=== PATIENT | male | born 1990 | race Caucasian/White ===

== ENCOUNTER 2024-12-28 14:17 | Emergency (ER) | payer MEDICAID ==
[~2024-12-28] VITALS: Ht 185.4 cm; Wt 76.2 kg
[2024-12-28 14:21] VITALS: BP 150/72; PULSE 82; RESP 16; TEMP 98.2; O2SAT 96
[2024-12-28] MEDS ORDERED: PENI500T2 PO (16:07)
[2024-12-28] MEDS ORDERED: IBUP-1984 PO (16:07)
[2024-12-28] MEDS: ibuprofen tablet 400 MG TABLET PO STA (16:35)
[2024-12-28] MEDS: penicillin V potassium 500mg tablet PO STA (16:35)
== END 2024-12-28 16:56 | disposition home or self-care (01) ==
LOC: ER 14:18
DX: K08.89 Other specified disorders of teeth and supporting structures (principal); Z79.1 Long term (current) use of non-steroidal anti-inflammatories (NSAID); Z79.2 Long term (current) use of antibiotics
CPT/HCPCS: 99283